=== PATIENT | female | born 1985 | race Caucasian/White ===

== ENCOUNTER 2018-11-20 01:59 | Emergency (ER) | payer SELFPAY, OTHER ==
[2018-11-20] MEDS: PROCHLORPERAZINE 10 MG INJ IV (04:00)
[2018-11-20] MEDS: ONDANSETRON 4 MG INJ IV (04:00)
[2018-11-20] MEDS: KETOROLAC 30 MG INJ IV (04:01)
[2018-11-20] MEDS: HYDROmorphONE 0.5 MG/0.5 ML SYG IV (04:01)
[2018-11-20] MEDS: SOD CHLORIDE 0.9% 1,000 ML IV (04:06)
== END 2018-11-20 05:27 | disposition home or self-care (01) ==
LOC: FTE 01:59
DX: S02.5XXA Fracture of tooth (traumatic), initial encounter for closed fracture (principal); R11.10 Vomiting, unspecified; X58.XXXA Exposure to other specified factors, initial encounter; Y92.9 Unspecified place or not applicable
CPT/HCPCS: 81025; 96374; 96375; 99284-25